=== PATIENT | female | born 1995 | race Caucasian/White ===

== ENCOUNTER 2021-11-17 00:41 | Emergency (ER) | payer OTHER ==
[~2021-11-17] VITALS: Ht 162.6 cm; Wt 40.8 kg
[2021-11-17 00:51] VITALS: BP 107/65
== END 2021-11-17 02:01 ==
LOC: ER 00:49
DX: Z00.00 Encounter for general adult medical examination without abnormal findings (principal); F32.A Depression, unspecified

== ENCOUNTER 2021-12-05 16:48 | Emergency (ER) | payer MEDICAID, OTHER ==
[~2021-12-05] VITALS: Ht 162.6 cm; Wt 43.1 kg
--- NOTE | 2021-12-05 17:00 | NUR ---
BIBS C/O DYSURIA AND VAGINAL DISCHARGE. AMBULATORY, PLACED ON BED.
[2021-12-05 17:02] VITALS: BP 102/60
--- NOTE | 2021-12-05 17:21 | NUR ---
URINE SAMPLE SENT TO LAB
[2021-12-05] MEDS ORDERED: CEFTRIAXONE 500 MG VIAL IM ONE (18:30)
[2021-12-05 19:00] LABS: BILIRUBIN,URINE NEGATIVE (NEGATIVE); COLOR,URINE YELLOW (YELLOW); LEUKOCYTE ESTERASE ,URINE TRACE (NEGATIVE); NITRITE, URINE NEGATIVE (NEGATIVE); PROTEIN,URINE NEGATIVE (NEGATIVE); UGLUCOSE NEGATIVE (NEGATIVE); UROBILINOGEN,URINE 0.2 EU/dL (0.2)
[2021-12-05 19:10] LABS: BACTERIA,URINE RARE /HPF (None Seen); RBC,URINE 21-50 /HPF (0-2); SQUAMOUS EPITHELIAL CELL,UR 0-2 /HPF (None Seen); URINE AMORPHOUS PHOSPHATES Moderate /HPF (None Seen)
[2021-12-05] MEDS ORDERED: LIDOCAINE 1% INJ 50 ML MDV IJ ONE (19:17)
[2021-12-05] MEDS ORDERED: CEFTRIAXONE 500 MG VIAL ONE (19:17)
[2021-12-05] MEDS ORDERED: DOXY100C2 PO (19:35)
--- NOTE | 2021-12-05 19:35 | NUR ---
Patient discharged to home in stable condition. Written and verbal after care instructions given. Patient verbalizes understanding of instruction.
== END 2021-12-05 19:35 | disposition home or self-care (01) ==
LOC: ER 16:48
DX: R30.0 Dysuria (principal); F32.A Depression, unspecified; Z90.89 Acquired absence of other organs; Z90.49 Acquired absence of other specified parts of digestive tract
CPT/HCPCS: 99284; 96372; 84703; 81001; 87210; 87491; 87591; J3490; J0696; 36415

== ENCOUNTER 2022-09-28 11:07 | Emergency (ER) | payer MEDICAID ==
[~2022-09-28] VITALS: Ht 162.6 cm; Wt 42.6 kg
[~2022-09-28 11:07] MED LIST: DOXY100C2 PO
[2022-09-28 11:09] VITALS: BP 107/65; TEMP 98.4
[2022-09-28] MEDS ORDERED: SULF1TAB48 PO (11:26)
[2022-09-28 11:45] VITALS: O2SAT 99
== END 2022-09-28 11:46 | disposition home or self-care (01) ==
LOC: ER 11:17
DX: N39.0 Urinary tract infection, site not specified (principal); F32.A Depression, unspecified; Z90.89 Acquired absence of other organs; Z90.49 Acquired absence of other specified parts of digestive tract

== ENCOUNTER 2022-10-14 14:26 | Emergency (ER) | payer MEDICAID ==
[~2022-10-14] VITALS: Ht 162.6 cm; Wt 43.1 kg
[~2022-10-14 14:26] MED LIST changes: +SULF1TAB48 PO
[2022-10-14 14:58] LABS: BASOPHILS % (AUTO) 0.7 % (0.0-2.0); EOSINOPHILS % (AUTO) 1.4 % (0.0-6.0); HEMATOCRIT 35 % (33-45); HEMOGLOBIN 11.8 g/dL (11.5-14.8); LYMPHOCYTES # (AUTO) 1.4 K/uL (0.8-4.8); LYMPHOCYTES % (AUTO) 39.1 % (20.0-44.0); MEAN CORPUSCULAR HEMOGLOBIN 31 PG (26.0-33.0); MEAN CORPUSCULAR HGB CONC 34 g/dl (31.0-36.0); MEAN CORPUSCULAR VOLUME 92 fL (82-100); MONOCYTES # (AUTO) 0.3 K/uL (0.1-1.30); MONOCYTES % (AUTO) 9.2 % (2.0-12.0); NEUTROPHILS # (AUTO) 1.7 K/uL (1.8-8.9); NEUTROPHILS % (AUTO) 49.6 % (43.0-81.0); PLATELET COUNT (AUTO) 262 K/uL (150-450); RED BLOOD CELL COUNT(AUTO) 3.81 MIL/uL (4.0-5.2); RED CELL DISTRIBUTION WIDTH 13.4 % (11.5-15.0); WHITE BLOOD COUNT (AUTO) 3.5 K/uL (4.3-11.0)
[2022-10-14 15:13] LABS: BILIRUBIN,DIRECT 0.2 mg/dL (0.0-0.2); CALCIUM, SERUM 9.2 mg/dL (8.5-10.1); CREATININE 0.6 mg/dL (0.6-1.3); POTASSIUM 3.4 mmol/L (3.5-5.1); TOTAL PROTEIN, SERUM 7.6 g/dL (6.4-8.2)
[2022-10-14 15:21] LABS: APPEARANCE,URINE CLEAR (CLEAR); BILIRUBIN,URINE NEGATIVE (NEGATIVE); BLOOD, URINE TRACE-INTA Ery/uL (NEGATIVE); COLOR,URINE YELLOW (YELLOW); KETONES,URINE NEGATIVE (NEGATIVE); LEUKOCYTE ESTERASE ,URINE NEGATIVE (NEGATIVE); NITRITE, URINE NEGATIVE (NEGATIVE); PH,URINE 6.5 (5.0-8.0); PROTEIN,URINE 2+ mg/dl (NEGATIVE); UGLUCOSE NEGATIVE (NEGATIVE); UROBILINOGEN,URINE 0.2 EU/dL (0.2)
[2022-10-14 15:26] LABS: PREGNANCY TEST URINE QUAL NEGATIVE (NEGATIVE)
[2022-10-14 15:38] LABS: ADD URINE CULTURE NO; BACTERIA,URINE Few /HPF (None Seen); RBC,URINE 0-2 /HPF (0-2); SQUAMOUS EPITHELIAL CELL,UR Few /HPF (None Seen); WBC,URINE NONE SEEN /HPF (0-3)
[2022-10-14] MEDS ORDERED: IOHEXOL-300 100 ML VIAL IV ONE (16:06)
[2022-10-14 18:58] VITALS: BP 100/60; TEMP 98.2; O2SAT 100
== END 2022-10-14 18:59 | disposition home or self-care (01) ==
LOC: ER 14:28
DX: R30.0 Dysuria (principal); R10.9 Unspecified abdominal pain; F32.A Depression, unspecified; Z87.440 Personal history of urinary (tract) infections; Z90.89 Acquired absence of other organs; Z90.49 Acquired absence of other specified parts of digestive tract
CPT/HCPCS: 99285; 74177; 85025; 80048; 87086; 83690; 80076; 84703; 81001; 36415; Q9967